=== PATIENT | female | born 1955 | race African-American/Black ===

== ENCOUNTER 2017-10-14 03:04 | Emergency (ER) | payer OTHER ==
[~2017-10-14] VITALS: Ht 154.9 cm; Wt 48.2 kg
[~2017-10-14 03:04] MED LIST: IMIP25TA5 PO; OMEP20 PO; TRAZ-147 PO
[2017-10-14] MEDS ORDERED: BUPR150T3 PO (03:20)
[2017-10-14 06:43] VITALS: BP 121/70
== END 2017-10-14 07:05 | disposition home or self-care (01) ==
LOC: EMS 03:05
DX: T19.2XXA Foreign body in vulva and vagina, initial encounter (principal); F12.90 Cannabis use, unspecified, uncomplicated; F14.90 Cocaine use, unspecified, uncomplicated; F17.210 Nicotine dependence, cigarettes, uncomplicated; Z88.2 Allergy status to sulfonamides; Z88.8 Allergy status to other drugs, medicaments and biological substances; X58.XXXA Exposure to other specified factors, initial encounter; Y93.89 Activity, other specified; Y92.89 Other specified places as the place of occurrence of the external cause; Y99.8 Other external cause status
CPT/HCPCS: 99284